=== PATIENT | female | born 1985 | race Caucasian/White ===

== ENCOUNTER 2024-09-29 20:29 | Emergency (ER) | payer OTHER, SELFPAY ==
[2024-09-29 20:35] VITALS: BP 139/87
[2024-09-29 21:44] VITALS: BP 132/75
--- NOTE | 2024-09-29 22:43 | ED.GENMED ---
History of Present Illness
General
Chief Complaint: Skin Problem
Source: patient
Time Seen by Provider: 09/29/24 22:29
History of Present Illness
History of Present Illness:
39-year-old female who says about a week ago she developed a mild headache and nasal congestion and then 2 days ago developed a rash at her left ear, behind the ear, and on the side of her face associated with enlargement of her lymph nodes and
clear discharge from her ear. She denies change in hearing, decreased hearing, dizziness, vertigo, double vision, blurry vision. She does note that her left eye looks red over the last day or 2 as well. Patient states she had the same symptoms in
May, or similar to this, was diagnosed with Lyme and it went away with antibiotics. Patient denies recent tick bites. She denies numbness, tingling, focal weakness, chest pain, shortness of breath, or other complaints.
Past History
Past History
ED Past Medical History: Other (Hyperthyroidism, prediabetes)
ED Past Surgical History:
Social History
Tobacco: Non-smoker
Alcohol: None
Drug: None
Personal:
Living: with family
Phy Exam
Physical Exam
Physical Exam:
GENERAL: Alert , in no apparent distress, overall very well-appearing
EYE: pupils equal and reactive, EOMI, no photophobia, no nystagmus. Minimal conjunctival injection on the left side without associated discharge.
NECK: Supple, posterior adenopathy noted on left side.
ENT: o/p clr, mmm, no trismus, no drool. Left TM intact without erythema or loss of reflex. The left external auditory canal has mild swelling associated with impetigo like lesions, wet without active drainage/purulent d/c/blood. Rash extends
post occiput, small lesion L lateral forehead/face and one small lesion L lateral eyebrow.
CARDIAC: Regular rate and rhythm .
LUNGS: Clear breath sounds bilaterally, no acute respiratory distress, no wheezes/rales/rhonchi
ABDOMEN: Soft, without focal tenderness, no r/g, no cvat
NEUROLOGICAL: Alert and oriented, no focal neuro deficits
SKIN: Warm and dry, skin intact.
MUSCULOSKELETAL: No edema, well perfused.
PSYCH: Normal and appropriate interaction.
Course
Orders/Labs/Results
Orders:
Orders
09/29/24 22:37
Visual Acuity- Treatment ONCE
09/29/24 22:51
Lyme Progressive Urgent
09/29/24 22:54
Cefuroxime Axetil [Ceftin] 500 mg PO NOW STA
Vital Signs
Initial and Last Documented VS:
Initial Vital Signs
Temp Pulse Resp BP Pulse Ox
98.1 F 62 19 139/87 100
09/29/24 20:35 09/29/24 20:35 09/29/24 20:35 09/29/24 20:35 09/29/24 20:35
Last Documented Vital Signs
Temp Pulse Resp BP Pulse Ox
98.1 F 66 18 132/75 98
09/29/24 20:35 09/29/24 21:44 09/29/24 21:44 09/29/24 21:44 09/29/24 21:44
Update Note
Update Note:
Patient presents to the Emergency Department with rash, eye redness, ear drainage
Number and Complexity of Problems Addressed at the Encounter
� Chronic conditions affecting care:
� Acute Exacerbation and/or Progression of Chronic Illness:
� Differential Diagnosis includes: But not limited to Lyme disease, zoster, impetigo, otitis externa, etc. etc.
Amount and/or Complexity of Data to be Reviewed and Analyzed
� I performed an independent evaluation of and my interpretation is:
EKG:
CT:
Xrays:
Laboratory Studies:
Other:
� Review of other/old records reveals:
� Clinical information was obtained by an independent historian:
� Prescriptions/Medications Considered but not given:
� Further testing considered but not performed:
Risk of Complications and/or Morbidity or Mortality of Patient Management
� Social determinants of health affecting care:
� Discussion with other providers (PCP, Hospitalists, Consultants, etc):
� Escalation of care including admission/observation vs risk of discharge considered: Ear canal not consistent with otitis externa, TM intact. Patient does not have discomfort when pulling on pinna. Consideration for zoster
however lesions not isolated to one dermatome making this extremely unlikely. Rash does not appear to be consistent with Lyme disease, test pending 4. Suspect impetigo, begin treatment with recommendations for close follow-up. Flourscein stain
negative for corneal abnl. nO HX OF mrsa.
ED Attending Note
-
Portions of this chart may have been created with voice recognition software.� Occasional wrong word or��sound alike� substitutions may have occurred due to the inherent limitations of voice recognition software.
Discharge Plan
Departure
Patient Disposition: Home (Routine Discharge)
Date of Disposition: 09/29/24
Time of Disposition: 22:59
Patient with high blood pressure during this ER visit?: Yes
Condition: Good
Discharge Problem:
Impetigo
Instructions: Skin Rash (DC), BLOOD PRESSURE
Prescriptions:
New
cefuroxime axetil 500 mg tablet
500 mg PO BID 7 Days Qty: 14 0RF
Referrals:
Jay Montanez MD [Primary Care Provider] - Follow up in 2-3 days
Activity Restrictions/Additional Instructions:
IF YOU DEVELOP INCREASING/NEW SWELLING, RASH, ANY FEVER, NUMBNESS, CHANGE IN VISION/HEARING/SPEECH, GET WORSE, DO NOT GET BETTER, OR OTHER WORRISOME SIGNS, GO TO THE ER IMMEDIATELY!
Interventions
Interventions:
*Risk Screen - Suicide Last Done: 09/29/24 20:35
*Neglect/Abuse Screening Last Done: 09/29/24 20:35
Discharge Date and Time
Print Language: CITIZEN OF [place]
[2024-09-29] MEDS: CEFTIN 500 MG PO (23:59)
[2024-09-30 13:35] LABS: Lyme Antibody Screen, EIA Negative (Negative)
== END 2024-09-30 00:10 | disposition home or self-care (01) ==
LOC: EMR 20:29
PROVIDERS: EMERGENCY PHYSICIAN Emergency Medicine; PRIMARYCARE PHYSICIAN Family Medicine
DX: L01.00 Impetigo, unspecified (principal)
CPT/HCPCS: 99283; 86618